=== PATIENT | male | born 1940 | race Caucasian/White ===

== ENCOUNTER 2021-11-03 15:31 | Emergency (ER) | payer BC ==
[~2021-11-03] VITALS: Ht 167.6 cm; Wt 74.4 kg
[2021-11-03 15:45] VITALS: BP_SYST 130
[2021-11-03] MEDS ORDERED: INDO-12 PO (16:57)
[2021-11-03] MEDS ORDERED: KETOROLAC TROMETHAMINE 60 MG/2 ML VIAL IM ONE (17:00)
== END 2021-11-03 17:22 | disposition home or self-care (01) ==
LOC: SED 15:31
DX: M25.542 Pain in joints of left hand (principal); M25.541 Pain in joints of right hand; M25.561 Pain in right knee; M25.562 Pain in left knee; M54.50 Low back pain, unspecified; E11.9 Type 2 diabetes mellitus without complications
CPT/HCPCS: 96372; 99283; J1885